=== PATIENT | female | born 1960 | race Hispanic/Latino ===

== ENCOUNTER 2020-12-23 12:00 | Inpatient (IN) | payer BC ==
[~2020-12-23] VITALS: Ht 152.4 cm; Wt 86.8 kg
[2020-12-23 11:14] LABS: BASOPHILS % (AUTO) 0.9 % (0.0-5.0); EOSINOPHILS % (AUTO) 3.8 % (0.0-8.0); HEMATOCRIT 39.6 % (36-48); LYMPHOCYTES % (AUTO) 42.3 % (21.0-51.0); MEAN CORPUSCULAR HEMOGLOBIN 30.3 pg (27.0-33.0); MEAN CORPUSCULAR HGB CONC 31.6 g/dL (32.0-36.0); MEAN CORPUSCULAR VOLUME 95.9 fL (79-99); MONOCYTES % (AUTO) 7.8 % (3.0-13.0); PLATELET COUNT (AUTO) 304 K/uL (130-400); RED BLOOD CELL COUNT(AUTO) 4.13 MIL/uL (4.00-5.50); RED CELL DISTRIBUTION WIDTH 13.6 % (11.0-15.5); WHITE BLOOD COUNT (AUTO) 8.5 K/uL (4.8-10.8)
[2020-12-23 11:29] LABS: ALBUMIN 3.3 g/dL (3.5-5.0); BILIRUBIN,TOTAL 0.2 mg/dL (0.2-1.0); CREATININE 0.7 mg/dL (0.5-1.5); POTASSIUM 4.5 mmol/L (3.5-5.1); TOTAL PROTEIN, SERUM 8.1 g/dL (6.0-8.3)
[~2020-12-23 12:00] MED LIST: CYCL10TA7 PO; GABA-531 PO; LISI1TAB32 PO; METF-444 PO
[2020-12-23 13:13] LABS: INR 0.97 (0.85-1.15); PROTHROMBIN TIME 10.6 SEC (9.6-11.6)
[2020-12-23 13:14] LABS: PARTIAL THROMBOPLASTIN TIME 27.9 SEC (26.3-35.5)
[2020-12-26 17:09] VITALS: BP 136/75
[2020-12-26] MEDS ORDERED: OXYC10TA48 PO (17:15)
[2020-12-26] MEDS ORDERED: ESCI-8 PO (17:38)
[2020-12-26] MEDS ORDERED: GABA300C PO (17:38)
[2020-12-27] VITALS (35 sets, daily range): BP systolic 128–166; BP diastolic 51–88
[2020-12-27] MEDS: CEFAZOLIN SODIUM 1 GM VIAL ONE ×2 (09:00→12:08)
[2020-12-27] MEDS ORDERED: SODIUM CHLORIDE 0.9% 1000ML 1,000 ML IV ONE (10:12)
[2020-12-27] MEDS ORDERED: CEFAZOLIN SODIUM 1 GM VIAL ONE (10:37)
[2020-12-27] MEDS ORDERED: VANCOMYCIN HCL 1 GM VIAL ONE (10:37)
[2020-12-27] MEDS ORDERED: THROMBIN-JMI 5000 UNIT/VIAL TP ONE (10:38)
[2020-12-27] MEDS ORDERED: KETOROLAC TROMETHAMINE 60 MG/2 ML VIAL ONE (10:58)
[2020-12-27] MEDS ORDERED: THROMBIN-JMI 20000 UNIT KIT TP ONE (11:17)
[2020-12-27] MEDS ORDERED: TRIAMCINOLONE ACETONIDE 40 MG/ML 1ML VIAL ONE (11:17)
[2020-12-27] MEDS ORDERED: LIDOCAINE PF 2% 5ML ABBOJECT ONE ×3 (11:52→12:40)
[2020-12-27] MEDS ORDERED: GLYCOPYRROLATE 1 MG/5 ML SYRINGE ONE (11:52)
[2020-12-27] MEDS ORDERED: MIDAZOLAM HCL 1 MG/ML 2ML VIAL ONE (11:52)
[2020-12-27] MEDS ORDERED: DEXAMETHASONE SOD PHOSPHATE 10MG/ML 1ML VIAL ONE (11:52)
[2020-12-27] MEDS ORDERED: SUCCINYLCHOLINE CHLORIDE 20 MG/ML 10 ML VIAL ONE (11:52)
[2020-12-27] MEDS ORDERED: PROPOFOL 10 MG/ML 20ML VIAL IV ONE (11:52)
[2020-12-27] MEDS ORDERED: FENTANYL CITRATE PF 50 MCG/1 ML 2ML VIAL ONE (11:53)
[2020-12-27] MEDS ORDERED: ONDANSETRON HCL 4 MG/2 ML VIAL ONE (11:53)
[2020-12-27] MEDS ORDERED: NEOSTIGMINE 5MG/5ML SYR IV ONE (11:53)
[2020-12-27] MEDS ORDERED: ROCURONIUM 10MG/1ML SYR 10 MG/ML ML ONE (11:53)
[2020-12-27] MEDS ORDERED: TRANEXAMIC ACID 1000MG/10ML ONE (12:55)
[2020-12-27] MEDS ORDERED: KETOROLAC TROMETHAMINE 30MG/ML ONE (13:27)
[2020-12-27] MEDS ORDERED: HYDROMORPHONE 1 MG/1 ML AMP ONE (13:29)
[2020-12-27] MEDS ORDERED: MEPERIDINE-PF 25 MG/ML SYG ONE ×3 (14:22→20:57)
[2020-12-27] MEDS ORDERED: OXYCODONE HCL 5 MG TAB ONE (19:28)
[2020-12-27] MEDS ORDERED: ACETAMINOPHEN-CODEINE 300/30MG TAB PO PRN (19:45)
[2020-12-27] MEDS ORDERED: ONDANSETRON HCL 4 MG/2 ML VIAL IVP PRN (19:45)
[2020-12-27] MEDS ORDERED: MEPERIDINE-PF 50 MG/ML SYG ONE (20:57)
[2020-12-28] MEDS ORDERED: OXYCODONE HCL 5 MG TAB PO PRN (02:45)
[2020-12-28] MEDS ORDERED: CYCLOBENZAPRINE HCL 10 MG TABLET PO PRN (02:45)
[2020-12-28] MEDS: ACETAMINOPHEN-CODEINE 300/30MG TAB PO PRN ×2 (03:03→09:36)
[2020-12-28 04:00] VITALS: BP 137/71
[2020-12-28 08:37] VITALS: BP 130/74
[2020-12-28] MEDS ORDERED: METFORMIN HCL 500 MG TABLET PO SCH (09:00)
[2020-12-28] MEDS ORDERED: LISINOPRIL 10 MG TABLET PO SCH (09:00)
[2020-12-28] MEDS ORDERED: HYDROCHLOROTHIAZIDE 25 MG TABLET PO SCH (09:00)
[2020-12-28] MEDS ORDERED: CITALOPRAM 20 MG TABLET PO SCH (09:00)
[2020-12-28] MEDS ORDERED: GABAPENTIN 300 MG CAPSULE PO SCH (09:00)
[2020-12-28 12:17] VITALS: BP 122/62
== END 2020-12-28 13:30 | disposition home or self-care (01) | DRG 517 ==
LOC: DAHIP 12-27 08:00 → 4AH 12-27 18:13
PROVIDERS: ADMIT Neurological Surgery; ATTEND Neurological Surgery
PROC: 0SJ00ZZ Inspection of Lumbar Vertebral Joint, Open Approach (ICD-10-PCS; principal; 2020-12-28)
PROC: 0SJ30ZZ Inspection of Lumbosacral Joint, Open Approach (ICD-10-PCS; 2020-12-28)
DX: T84.226A Displacement of internal fixation device of vertebrae, initial encounter (principal); M96.1 Postlaminectomy syndrome, not elsewhere classified; M48.062 Spinal stenosis, lumbar region with neurogenic claudication; Z20.822 Contact with and (suspected) exposure to COVID-19; Z88.7 Allergy status to serum and vaccine; Y92.89 Other specified places as the place of occurrence of the external cause
CPT/HCPCS: 36415; 71046; 72100; 80053; 82948; 85025; 85610; 85730; 93005; G0378; J0330; J0690; J1100; J1170; J1885; J2001; J2175; J2250; J2405; J2704; J2710; J3010; J3301; J3370; J3490; J7030; U0003

== ENCOUNTER 2025-02-05 11:58 | Emergency (ER) | payer MEDICARE ==
[~2025-02-05] VITALS: Ht 152.4 cm; Wt 88.5 kg
[~2025-02-05 11:58] MED LIST changes: +ACET-2079 PO; +CYCL-309 PO; -CYCL10TA7 PO; +ESCI-8 PO; +GABA300C PO; -LISI1TAB32 PO; +LISI1TAB49 PO; +OXYC10TA48 PO
[2025-02-05 12:07] VITALS: BP 164/92; PULSE 80; RESP 16; TEMP 98.1
--- NOTE | 2025-02-05 13:08 | HMCIMG ---
FOOT COMP 3+VWS LT HISTORY: Status post fall COMPARISON: None TECHNIQUE: 3 images of the left foot were obtained. FINDINGS: Irregularity is seen involving the distal portion of the fifth metatarsal bone consistent with fracture of indeterminate age. No dislocation is seen. Bony osteopenia is seen. Degenerative changes are seen. IMPRESSION: 1. Findings as described above.
--- NOTE | 2025-02-05 13:25 | HMCIMG ---
ANKLE 2VWS LT HISTORY: Status post fall COMPARISON: None TECHNIQUE: 2 images of the left ankle were obtained. FINDINGS: There is no acute displaced fracture or dislocation. There is a calcaneal spur. Degenerative changes are seen. IMPRESSION: 1. Findings as described above.
--- NOTE | 2025-02-05 13:59 | ERN ---
ED Note History of Present Illness Stated Complaint: FELL AND BRUISED LT FOOT SWOLLEN Chief Complaint: FOOT INJURY/PAIN Time Seen by MD: 12:03 Time Seen by Midlevel: 12:05 Dictation: 64-year-old female coming in for evaluation of left foot pain. Patient states she tripped and fell on Wednesday landing on her knees but complaining of left foot pain. Patient does not have any obvious deformities or abrasions, came in ambulating without assistance. Patient states she took oxycodone in the morning that she gets prescribed from her pain specialist. Allergies: Coded Allergies: Influenza Virus Vaccines (Unverified Allergy, Unknown, 06/24/17) Home Meds Active Scripts Acetaminophen with Codeine (Acetaminophen-Cod #3 Tablet) 300 Mg-30 Mg Tablet, 1 TAB PO Q4H PRN for PAIN LEVEL 2 TO 5, #20 TAB Prov:ANGEL LUIS GIANG [employer] 05/07/23 Reported Medications Gabapentin (Neurontin) 300 Mg Capsule, 300 MG PO BID, CAP 12/26/20 Escitalopram Oxalate (Escitalopram Oxalate) 10 Mg Tablet, 10 MG PO DAILY, TAB 12/26/20 Oxycodone HCl (Oxycodone HCl) 10 Mg Tablet, 10 MG PO TIDP PRN for PAIN LEVEL 5 TO 10, TAB 12/26/20 Gabapentin (Gabapentin) 300 Mg Capsule, 300 MG PO BID, CAP 06/25/17 Lisinopril/Hydrochlorothiazide (Lisinopril-Hctz 10-12.5 mg Tab) 1 Each Tablet, 1 EACH PO DAILY, TAB 06/25/17 Cyclobenzaprine HCl (Cyclobenzaprine HCl) 10 Mg Tablet, 10 MG PO BID PRN for MUSCLE SPASM, TAB 06/25/17 Metformin HCl (Metformin HCl) 500 Mg Tablet, 500 MG PO BID, TAB 06/25/17 Past Medical History Past Medical History: Depression, Diabetes-Type II, GERD, High Cholesterol, Heart Disease Additional Past Medical Hx: NEUROPATHY, TAKES OCYCODONE DAILY FOR BACK PAIN Surgical History: Cholecystectomy, Other, Surgical History Other: BACK SURGERY. PAIN STIMULATOR Review of System Dictation Constitutional: Negative for fever,chills, and weight loss Eyes: Negative for injury, pain,redness, and discharge ENT: Negative for injury,pain or swelling Cardiovascular: Negative for chest pain, palpitations, and edema Respiratory: Negative for shortness of breath, cough, and wheezing, Abdomen/GI: Negative for abdominal pain, nausea, vomiting, diarrhea, and constipation Back: Negative for injury and pain : Negative for injury, bleeding and discharge MS/Extremity: Negative for injury and deformity, complaining of left foot pain Skin: Negative for rash, and discoloration Neuro: Negative for headache, weakness, numbness, tingling, and seizure Psych: Negative for suicide ideation, homicidal ideation, and hallucinations Review of Systems: was completed Initial Vital Sign VS Vital Signs Date Time Temp Pulse Resp B/P (MAP) Pulse Ox O2 Delivery O2 Flow Rate FiO2 02/05/25 12:07 98.1 80 16 164/92 96 Room Air 0 Physical Exam Dictation General: awake, alert, NAD Head/Face: Normocephalic, atraumatic Eyes: PERRL, EOMI, vision at baseline ENT: oral cavity clear, TMs clear, no signs of infection Neck: Trachea midline, supple, no nuchal rigidity Cardiovascular: RRR, normal S1/S2, No MRGs, no JVD Respiratory: CTAB, no respiratory distress, No rales or wheezes Abdomen: Soft, non-tender, non-distended, normal bowel sounds, no guarding or rebound. Skin: Warm, dry, normal turgor, no rash MS/Extremity: Pulses equal, no cyanosis, neurovascular intact, FROM, bruising noted to the dorsal aspect of the foot Neuro: COAx4, GCS 15, strength 5/5, CN 2-12 intact, normal cerebellar exam, normal gait, Psych: Normal behavior, mood, and affect normal Results (Laboratory/Radiology) CT Scan Comment: [address] [id number] IMAGING REPORT Signed PATIENT: ROSINA ARAMBULA MR#: [id number] : 1960 SEX: F AGE: 64 LOCATION: [facility] ORDER 1210 STATUS: REG ER REPORT#: [id number] SERVICE 1209 REASON: fall ORDERING PHYSICIAN: RASHID ACOSTA NP PROCEDURE: FT 3VW LT - FOOT COMP 3+VWS LT FOOT COMP 3+VWS LT HISTORY: Status post fall COMPARISON: None TECHNIQUE: 3 images of the left foot were obtained. FINDINGS: Irregularity is seen involving the distal portion of the fifth metatarsal bone consistent with fracture of indeterminate age. No dislocation is seen. Bony osteopenia is seen. Degenerative changes are seen. IMPRESSION: 1. Findings as described above. DICTATED BY: TREY DOWLING MD DATE: 02/05/25 1304 ELECTRONICALLY SIGNED BY: TREY DOWLING MD DATE: 02/05/[address] [address] IMAGING REPORT Signed PATIENT: ROSINA ARAMBULA MR#: [id number] : 1960 SEX: F AGE: 64 LOCATION: [facility] ORDER 1210 STATUS: REG ER [facility] REPORT#: [id number] SERVICE 1209 REASON: fall ORDERING PHYSICIAN: RASHID ACOSTA NP PROCEDURE: [id number] - ANKLE 2VWS LT ANKLE 2VWS LT HISTORY: Status post fall COMPARISON: None TECHNIQUE: 2 images of the left ankle were obtained. FINDINGS: There is no acute displaced fracture or dislocation. There is a calcaneal spur. Degenerative changes are seen. IMPRESSION: 1. Findings as described above. DICTATED BY: TREY DOWLING MD DATE: 02/05/25 1320 ELECTRONICALLY SIGNED BY: TREY DOWLING MD DATE: 02/05/25 1325 ED Course ED Course Orders Procedure Category Date Status Time Foot Comp 3+Vws Lt RAD 02/05/25 Resulted 12:09 Ankle 2vws Lt RAD 02/05/25 Resulted 12:09 *Nursing CPOE 02/05/25 Verified Communication: 13:51 Vital Signs Date Time Temp Pulse Resp B/P (MAP) Pulse Ox O2 Delivery O2 Flow Rate FiO2 02/05/25 12:07 98.1 80 16 164/92 96 Room Air 0 Medical Decision Making MDM MDM: 64-year-old female coming in for evaluation of left foot pain. Patient states she tripped and fell on Wednesday landing on her knees but complaining of left foot pain. Patient does not have any obvious deformities or abrasions, came in ambulating without assistance. Patient says he has a mild knee pain however has full range of motion, no obvious deformities, no abrasions. Patient states she took oxycodone in the morning that she gets prescribed from her pain specialist. X-ray of the ankle shows a calcaneal spur but no acute displaced fracture or dislocation. Foot x-ray shows irregularity involving the distal p ortion of the 5th metatarsal consistent with a fracture of indeterminate age. Patient will be placed in a orthopedic boot and given the information to follow up outpatient with an instructional specialist. Discussed findings with the patient. Educated patient to follow up with the with the PCP or instructional specialist. Patient verbalized understanding, answered all questions. Differential diagnosis: Ankle fracture, metatarsal fracture, foot contusion Rationale: Tests considered and ordered secondary to shared decision making include: Previous outside records reviewed: Old ER visits. Risk of complication and/or morbidity or mortality of patient management: None Medications-Per medication reconciliation Need for hospitalization: Patient does not meet criteria for hospitalization. Need for emergency major/minor surgery: No There are no social concerns with this patient. Prescription drug management Prescriptions will include symptomatic care Patient's prior external medical records from other ER visits were reviewed by me as indicated. Prior testing and results from previous visits were reviewed. Prior tests were taken into account with medical decision making and resource utilization, independent historian/historians were used to obtain complete medical history. I independently interpreted the test that were performed, results were reviewed by me and considered findings on radiology if ordered. Medical management and examination interpretation discussions were had by me with other qualified healthcare professionals as indicated for the patient's care. DX & DISP Disposition: Discharge Departure Impression: Primary Impression: Fracture of metatarsal bone of left foot Condition: Stable Additional Instructions: Follow up with her PCP and with instructional specialist. Take your pain medication at home to help with the pain. Breast and elevate your foot to decrease swelling and help with pain management. Referrals: DENNY FRANK (PCP) MELINDA IBANEZ MD Time of Disposition: 13:58 I have reviewed the case, and I agree with, Diagnosis and Plan RASHID ACOSTA NP Feb 05, 2025 13:59
== END 2025-02-05 14:27 | disposition home or self-care (01) ==
LOC: EDH 11:58
DX: S92.352A Displaced fracture of fifth metatarsal bone, left foot, initial encounter for closed fracture (principal); E11.9 Type 2 diabetes mellitus without complications; E78.00 Pure hypercholesterolemia, unspecified; Z79.84 Long term (current) use of oral hypoglycemic drugs; Z79.899 Other long term (current) drug therapy; Z88.7 Allergy status to serum and vaccine; Z90.49 Acquired absence of other specified parts of digestive tract; W01.0XXA Fall on same level from slipping, tripping and stumbling without subsequent striking against object, initial encounter; Y93.89 Activity, other specified; Y92.89 Other specified places as the place of occurrence of the external cause; Y99.8 Other external cause status
CPT/HCPCS: 73600; 73630; 99284

== ENCOUNTER 2025-07-22 19:11 | Emergency (ER) | payer MEDICARE ==
[~2025-07-22] VITALS: Ht 152.4 cm; Wt 83.9 kg
[2025-07-22 19:14] VITALS: BP 148/84; PULSE 77; RESP 18; TEMP 98.5
--- NOTE | 2025-07-22 19:18 | ERN ---
ED Note History of Present Illness Stated Complaint: AMANDA KNEE INJURY Chief Complaint: Knee Injury/Swelling Time Seen by MD: 19:13 Dictation: PATIENT IS A 64-YEAR-OLD FEMALE HERE WITH HER SON WITH COMPLAINTS OF BILATERAL KNEE PAIN AFTER A TRIP FALL YESTERDAY WHILE SHE WAS AT HOME. SHE DENIES ANY SYNCOPE. DENIES ANY HISTORY OF PRIOR SURGERIES OR INJURIES TO HER KNEES SHE SAID SHE HAS OXYCODONE FROM HER PRIMARY CARE DOCTOR IN [place] and took one prior to arrival. Distal neurovascular CMS intact. She has a knee brace to her right knee [id number] to her right knee Allergies: Coded Allergies: Influenza Virus Vaccines (Unverified Allergy, Unknown, 06/24/17) Home Meds Active Scripts Acetaminophen with Codeine (Acetaminophen-Cod #3 Tablet) 300 Mg-30 Mg Tablet, 1 TAB PO Q4H PRN for PAIN LEVEL 2 TO 5, #20 TAB Prov:ANGEL LUIS GIANG [employer] 05/07/23 Reported Medications Gabapentin (Neurontin) 300 Mg Capsule, 300 MG PO BID, CAP 12/26/20 Escitalopram Oxalate (Escitalopram Oxalate) 10 Mg Tablet, 10 MG PO DAILY, TAB 12/26/20 Oxycodone HCl (Oxycodone HCl) 10 Mg Tablet, 10 MG PO TIDP PRN for PAIN LEVEL 5 TO 10, TAB 12/26/20 Gabapentin (Gabapentin) 300 Mg Capsule, 300 MG PO BID, CAP 06/25/17 Lisinopril/Hydrochlorothiazide (Lisinopril-Hctz 10-12.5 mg Tab) 1 Each Tablet, 1 EACH PO DAILY, TAB 06/25/17 Cyclobenzaprine HCl (Cyclobenzaprine HCl) 10 Mg Tablet, 10 MG PO BID PRN for MUSCLE SPASM, TAB 06/25/17 Metformin HCl (Metformin HCl) 500 Mg Tablet, 500 MG PO BID, TAB 06/25/17 Past Medical History Past Medical History: Depression, Diabetes-Type II, GERD, High Cholesterol, Heart Disease Additional Past Medical Hx: NEUROPATHY, TAKES OCYCODONE DAILY FOR BACK PAIN Surgical History: Cholecystectomy, Other, Surgical History Other: BACK SURGERY. PAIN STIMULATOR History: Not Applicable RN Note Reviewed/Agreed w/PFSH: Yes Review of System Dictation CONSTITUTIONAL: Negative except for HPI HEAD/FACE: Negative except for HPI EENT: Negative except for HPI RESPIRATORY: Negative except for HPI GASTROINTESTINAL/ABDOMINAL: Negative except for HPI GENITOURINARY: Negative except for HPI MUSCULOSKELETAL: Negative except for HPI bilateral knee pain contusion noted to left medial knee INTEGUMENTARY: Negative except for HPI NEUROLOGICAL/PSYCH: Negative except for HPI HEMATOLOGIC/LYMPHATIC: Negative except for HPI All Systems Negative, Except as noted above. 13 point review of systems assessed and all negative except for above. Initial Vital Sign VS Vital Signs Date Time Temp Pulse Resp B/P (MAP) Pulse Ox O2 Delivery O2 Flow Rate FiO2 07/22/25 19:14 98.4 77 18 148/84 96 0 Physical Exam Dictation Vital Signs reviewed General Appearance: Alert, oriented x 3, moderate acute distress, well developed, nourished. Obese Head and Face: non-traumatic. Eyes: PERRL, pink conjunctivas, eyelid no trauma, anterior chamber with arcus senilis. Ears: Pinnas intact and no signs of trauma or erythema ear canals clear and no discharge TM no erythema Nose: No discharge, no bleeding. Oropharynx: Mouth normal, tongue pink, pharynx clear,no erythema, tonsils no exudates, no abscesses noted, mucous me mbrane moist Neck: Supple, non-tender, no thyromegaly, no masses, no JVD, no bruits Breast:Deferred Chest:No tenderness, no crepitus, no paradoxical movement, no retractions Lungs:Clear, well-ventilated, symmetric, no rales, no wheezing, no rhonchi, no stridor, good breath sounds bilaterally Heart: Regular rate, regular rhythm, no murmur, no gallops Vascular: no peripheral edema, Abdomen: Soft, positive bowel sounds, nondistended, no guarding, nontender, no rebound, no masses no hepatomegaly, no splenomegaly, no Diana's sign, no hernias. Rectal: Deferred Genital: Deferred Neurological: Normal speech, motor function intact, sensory function intact Musculoskeletal: Neck nontender, full range of motion, back nontender, full range of motion, Extremities: Bilateral anterior knee pain tenderness. Contusion noted to left medial knee. Range of motion with pain. Neurovascular CMS intact bilateral Skin: Color pink, dry, no turgor, no rash, no lacerations, no abrasions, no contusions. Lymphatic: Deferred Results (Laboratory/Radiology) Laboratory/Radiology 2002/LEFT KNEE NEGATIVE EXCEPT FOR DEGENERATIVE CHANGES RIGHT PATELLAR FRACTURE Labs Reviewed?: Yes ED Course ED Course Orders Procedure Category Date Status Time Knee 3vws Lt RAD 07/22/25 Taken 19:15 Knee 3vws Rt RAD 07/22/25 Taken 19:15 Ketorolac 60mg/2ml PHA 07/22/25 Complete (Toradol 60mg/2ml) 19:30 Hydrocodone/Apap PHA 07/22/25 Complete 5/325 ([place] 5/325mg) 19:30 Knee Immobilizer [place] 07/22/25 Verified 20:02 Current Medications Medications (Trade) Dose Ordered Sig/Andres Route PRN Reason Start Time Stop Time Status Last Admin Dose Admin Acetaminophen/ Hydrocodone Bitart (NORco 5/325MG) 1 tab ONCE ONCE PO 07/22/25 19:30 07/22/25 19:31 DC 07/22/25 20:00 Ketorolac Tromethamine (toRADol 60MG/ 2ML) 60 mg ONCE ONCE IM 07/22/25 19:30 07/22/25 19:31 DC 07/22/25 19:37 Vital Signs Date Time Temp Pulse Resp B/P (MAP) Pulse Ox O2 Delivery O2 Flow Rate FiO2 07/22/25 19:14 98.4 77 18 148/84 96 0 2005/KNEE IMMOBILIZER PLACED TO RIGHT KNEE BY TECH DISTAL NEUROVASCULAR CMS INTACT POST PLACEMENT. Medical Decision Making MDM MEDICAL DECISION-MAKING BASED ON EMPIRIC TREATMENT FOR ACUTE KNEE PAIN X-RAYS OF BILATERAL KNEES STATUS POST FALL KNEE IMMOBILIZER PLACED TO RIGHT KNEE WITH NEUROVASCULAR CMS INTACT POST PLACEMENT PATIENT AWARE SHE HAS A RIGHT PATELLAR FRACTURE SHE HAS OXYCODONE AT HOME WE WILL BE GIVEN ULTRACET AND TOLD TO SEE ORTHOPEDIC SURGEON NEXT 2-3 DAYS. DX & DISP Disposition: Discharge Departure Impression: Primary Impression: Fracture of right patella Additional Impressions: Contusion of left knee, initial encounter, Fall Condition: Stable Scripts Tramadol HCl/Acetaminophen (Tramadol-Acetaminophn 37.5-325) 37.5 Mg-325 Mg Tablet 2 EACH PO Q6HPRN PRN for MODERATE SEVERE PAIN, #12 TAB 0 Refills Prov: REJI NIEVES [employer] SAL[employer]OC[employer]ATE 07/22/25 Additional Instructions: Follow-up with primary care provider in 1 to 2 days. Take medications as directed here in the emergency room. Okay to continue home medications unless otherwise discussed during your visit in the emergency room today. Return to your nearest emergency room if symptoms worsen or if there is no improvement. Call 911 if you need immediate assistance. Take Tylenol or Motrin [id number] as needed and if no contraindications are present. Increase oral hydration. A wound culture or urine culture was ordered here in the emergency room department please follow-up with primary care provider and advise them to get repeat ports from our facility. If you had any Ankit wrap/splints that were applied here, please do not remove them until you see your primary care or specialty. Continue your oxycodone at home from your primary care doctor for your severe pain. Take Ultracet as needed for molar pain. Cool compresses to your left knee and right knee three to 4 times a day. Knee immobilizer/no weight-bearing until cleared by Orthopedics and call tomorrow for an appointment Referrals: DENNY FRANK (PCP) MIGUEL ANGEL VILLA MD Time of Disposition: 20:06 I have reviewed the case, and I agree with, Diagnosis and Plan REJI NIEVES [employer] SAL[employer] ASSOCIATE Jul 22, 2025 19:18
[2025-07-22] MEDS: HYDROcodone/APAP 5/325 1 TAB TABLET PO ONE (20:00)
--- NOTE | 2025-07-22 20:29 | NUR ---
KNEE IMMOBILIZER APPLIED TO R KNEE, TOLERATED WELL
--- NOTE | 2025-07-22 20:47 | HMCIMG ---
EXAM: CR left Knee, 3 views. CLINICAL HISTORY: Status post fall. Knee pain. COMPARISON: None provided. FINDINGS: Mild osteopenia. Mild degenerative changes in the medial tibiofemoral and patellofemoral joint with marginal osteophytes. No acute fracture or aggressive appearing osseous lesion. There is no joint effusion appreciated. The soft tissues are unremarkable. IMPRESSION: No acute osseous abnormality. Mild osteopenia. Mild degenerative changes in the medial tibiofemoral and patellofemoral joint with marginal osteophytes. /[place]
--- NOTE | 2025-07-22 20:48 | HMCIMG ---
EXAM: CR right Knee, 3 views. CLINICAL HISTORY: Status post fall. Knee pain. COMPARISON: None provided. FINDINGS: Mild osteopenia. Mild degenerative changes in the medial tibiofemoral and patellofemoral joint with marginal osteophytes. Transverse fracture through the superior pole of the patella. Mild suprapatellar knee joint effusion. No aggressive appearing osseous lesion. There is no joint effusion appreciated. The soft tissues are unremarkable. Vascular calcifications are identified. IMPRESSION: Transverse fracture through the superior pole of the patella. Mild suprapatellar knee joint effusion. Mild osteopenia. Mild degenerative changes in the medial tibiofemoral and patellofemoral joint with marginal osteophytes. /[place]
== END 2025-07-22 20:30 | disposition home or self-care (01) ==
LOC: EDH 19:11
DX: S82.031A Displaced transverse fracture of right patella, initial encounter for closed fracture (principal); S80.02XA Contusion of left knee, initial encounter; E11.9 Type 2 diabetes mellitus without complications; E78.00 Pure hypercholesterolemia, unspecified; I51.9 Heart disease, unspecified; Z79.84 Long term (current) use of oral hypoglycemic drugs; Z79.899 Other long term (current) drug therapy; Z88.7 Allergy status to serum and vaccine; Z90.49 Acquired absence of other specified parts of digestive tract; W01.0XXA Fall on same level from slipping, tripping and stumbling without subsequent striking against object, initial encounter; Y93.89 Activity, other specified; Y92.098 Other place in other non-institutional residence as the place of occurrence of the external cause; Y99.8 Other external cause status
CPT/HCPCS: 99283; 29505; 73562; 96372; J1885